=== PATIENT | male | born 1945 | race Caucasian/White ===

== ENCOUNTER → 2016-10-26 | Outpatient (CLI) | payer OTHER ==
[~2016-10-26] MED LIST: ACT35; GLUCAPHAGE; GLUCATROL; PROM25TA PO; ZOCOR
--- NOTE | 2016-10-27 05:48 | PAP/PSG TECHNICIAN REPORT ---
[facility] Trim Setter Helper Polysomnogram Report Study name: None Report date: 10/27/2016 Study date: 10/26/2016 Referring Physician: Ivon Church M.D. Name: YARELY PÉREZ Interpreting Physician: Giovana Church M.D. Date of : 1945 Trim Setter Helper: Zehra Saunders RPS. Sex: Male Age: 71 StudyType: PSG Weight: 200 lbs Height: 71 years, Height 5' 7.5" Neck Circum: 16 inches BMI: 30.86 Medications: Nuerontic 300 mg, Insulin, Lantus, Glucophage 1000 mg, Lipitor 40 mg, Prinivil 5 mg, Naproxen Sodium 550 mg, Flonase 50 MCG/ACT, Benefiber, Aspirin 71 mg, Vitamin D 400 units Patient History 71 yr. old male here for a possible split night sleep study in room #2. Patient complains of snoring, waking up with a dry mouth, and EDS. Patients [place] Sleepiness Scale Score is 10/24. Parameters Monitored NPSG: E1-M2, E2-M1, Fp1-M2, Fp2-M1, F3-M2, F4-M2, F4-M1, C3-M2, C4-M2, C4-M1, O1-M2, O2-M2, O2-M1, T3-M2, T4-M1, P3-M2, P4-M1, CHIN1, CHIN2, HR, EKG, Legs, PFLOW, SNOR, FLOW, CFLOW, Tidal Volume, THOR, ABDO, SpO2, PLTH, CPRESS, ETCO2 Wave, ETCO2, pH Sleep Architecture Sleep Stages Time at Lights Off 10:25:15 PM STAGES Time (min.) TST (%) Time at Lights On 5:30:15 AM Wake 65.0 -- Total Recording Time (TRT) 425.00 min. N1 33.0 9 Total Sleep Period (TSP) 403.0 min. N2 216.0 60 Total Sleep Time (TST) 360.0min. N3 39.0 11 Awake Time 65.0 min. REM 72.0 20 Wake after Sleep Onset 43.0 min. Sleep Efficiency (SE) 85 % Sleep Onset Latency (CLIFF) 22.0 min. Number of Stage 1 Shifts None Awakenings 17 Stage Changes 96 Number of REM periods 4 REM 72.0 20 REM Latency 54.5 min. NREM 288.0 80 Body Position Analysis Supine Right Left Side Prone Vertical Total Sleep Time (min.) 323.3 30.9 68.9 99.89 0.0 0.0 Total Sleep Time (%) 72% 9% 19% 28 0% N/A% Total Sleep Time REM (min.) 15.8 26.0 30.2 None 0.0 0.0 Total Sleep Time NREM (min.) 244.3 4.9 38.7 None 0.0 0.0 Intermittent Wake (min.) 63.2 1.3 0.5 None 0.0 0.0 Total Sleep Period (%) 75% None None None None None Arousals Myoclonus (PLM) * Events Count Index Events Count Index Spontaneous 13 2 Events Awake (PLMW) 21 19.4 Respiratory 21 3.5 Events Asleep w/ Arousal (PLMA) 45 7.5 PLM 44 8 Events Asleep w/o Arousal (PLMS) 126 21.0 Snoring 10 2 Total Asleep 171 28.5 Total 88 15 Total 192 27 Respiratory Analysis * CA OA MA CH H RERA Total Count 24 9 8 0 117 0 158 Index 4.0 1.5 1.3 0 19.5 0 26.3 Mean Duration 14.1 18.5 17.0 0.00 21.0 0.0 19.6 Longest Duration 20.8 24.2 20.5 0.00 20.5 0.0 55.0 Respiratory Event Summary Total Supine ~Supine Right Left Prone REM NREM Apneas Count 41 39 2 0 2 N/A 3 38 Index 6.8 9 1 0.0 1.7 N/A 3 8 Hypopneas (4% Desat) Count 117 90 27 17 10 N/A 36 81 Index 19.5 20.8 16 33.0 8.7 N/A 30.0 16.9 Apneas & All Hypopneas Count 158 129 29 17 12 N/A 39 119 Index 26.3 30 17 33 10 N/A 32.5 24.8 Respiratory Events (Ip Architect+All Hyp+RERA) Count 158 129 29 17 12 N/A 39 119 Index 26.3 30 17 33.0 10.4 N/A 32.5 24.8 Respiratory Related Arousal Count 21 129 0 0 0 N/A 1 20 Index 3.5 5 0 0 0 N/A 1 4 Snoring Analysis Supine Right Left Prone REM NREM Total Snore duration 3.6 min Snores count 105 27 16 N/A 41 107 148 Snore mean duration 1.5 Sec Snores index 24 52 14 N/A 34.2 22.3 24.7 TST with snoring (%) 1.0% Desaturation Event Summary: Minimum %SpO2 Event Count Mean/Min/Max Duration(sec.) Desaturation Index % Time In Bed > 90 145 21.5 / 7.5 / 56.8 91.3 22.7 86 - 90 97 23.0 / 4.3 / 58.5 18.7 74.0 81 - 85 1 23.3 / 23.3 / 23.3 4.8 3.0 76 - 80 0 N/A 0.0 0.3 71 - 75 0 N/A 0.0 0.0 66 - 70 0 N/A 0.0 0.0 61 - 65 0 N/A 0.0 0.0 56 - 60 0 N/A 0.0 0.0 51 - 55 0 N/A 0.0 0.0 < 50 0 N/A 0.0 0.0 Total REM NREM Awake <50% 0.0 min. 0.0 min. 0.0 min. 0.0 min. 51 - 60% 0.0 min. 0.0 min. 0.0 min. 0.0 min. 61 - 70% 0.0 min. 0.0 min. 0.0 min. 0.0 min. 71 - 80% 1.3 min. 1.0 min. 0.0 min. 0.3 min. 81 - 90% 323.7 min. 62.1 min. 232.4 min. 29.1 min. 91 - 100% 95.3 min. 8.9 min. 55.6 min. 30.9 min. Average 89 88 89 91 Minimum SpO2 76 76 82 78 Desaturation Event Index 24.1 28.3 25.6 13.8 # Desat. Events below 89% 143 32 100 11 Time(%) with Saturation below 89% 33.6 9.1 23.4 1.1 Time(min.) with Saturation below 89% 141.1 38.2 98.5 4.5 Time (mins) REM (mins) NREM (mins) % of TST SpO2 Below 90% 156 33 N123 64.8 SpO2 Below 88% 51 0 0 16 Heart Rate Analysis Min (bpm) Max (bpm) Average (bpm) Awake 52 81 61 NREM 51 73 59 REM 49 73 54 Overall 49 73 58 Supplemental O2 Values Minimum O2 level: None Value Start Time End Time Trim Setter Helper Comments Mr. Pérez slept in the right, left, and supine positions. No cardiac arrhythmia or PLMs noted. No bruxism noted. Snoring was noted and scored as a 3 on a scale of 0 through 5. (0=no snoring, 5=snoring loud enough to be heard through a closed door or down the [address] way) Mr. Pérez awoke to use the restroom once times during the night. Mr. Pérez stated, that was a good night. The final report will be interpreted and signed by a sleep physician. The completed physician report will then be placed in the patient medical record. Therapy (cm H2O) 0 TIB (min.) 425.0 TST (min.) 360.0 Sleep Onset (min.) 22.0 REM Onset From Sleep (min.) 54.5 Sleep Efficiency % 85 Wakefulness (%) 15 Wakefulness (min.) 65.0 NREM 1 (%) 9 NREM 1 (min.) 33.0 NREM 2 (%) 60 NREM 2 (min.) 216.0 NREM 3 (%) 11 NREM 3 (min.) 39.0 REM (%) 20 REM (min.) 72.0 # Arousals 88 Arousal Index 15 # Snore 148 Snore Index 24.7 AHI 26.3 AHI Supine 30 AHI Non-Supine 17 NREM AHI 24.8 REM AHI 32.5 RDI 26.3 # Obstructive Apnea 9 # Central Apnea 24 # Mixed Apnea 8 # Hypopneas 117 RERAs 0 Total Respiratory Events 163 Time Below SpO2 89% (min.) 136.7 Mean NREM SpO2 (%) 89 Mean REM SpO2 (%) 88 Mean Sleep SpO2 (%) 89 Min NREM SpO2 (%) 82 Min REM SpO2 (%) 76 Position Supine (min.) 323.3 Position Non-supine (min.) 99.9 LM Index Sleep 28.5 LM Index NREM 30.4 LM Index REM 20.8 Mean Heart Rate (bpm) 58 Min Heart Rate (bpm) 49
--- NOTE | 2016-11-11 15:05 | POLYSOMNOGRAPH REPORT ---
REFERRING PERSON: Dr. Colleen Church. EVENT SECURITY OFFICER: Zehra Saundesr. Mr. Burgess is a 71-year-old male sent for a possible split night sleep study. He complains of snoring, waking up with a dry mouth and excessive daytime sleepiness. His [place] sleepiness scale score on the evening of this study is 10. BMI is 30.86. Following the technical and digital specifications of the [place] [employer] (AASM) a standard diagnostic polysomnogram was performed monitoring EEG, EOG, EMG (chin and leg deviations), oxygen saturation, body position, digital video, respiratory effort and airflow. The sleep Stage and event scoring was based on the AASM Manual for the Scoring of Sleep and Associated Events 2007 edition. Apneas are defined as a drop in the peak thermal sensor excursion by >90% of baseline for at least 10 seconds. Hypopneas were scored using the 4% oxygen desaturation rule (4A-[employer]ic[employer]) and a decrease in the nasal pressure excursions by >30% of baseline for at least 10 seconds. Respiratory effort-related arousal (RERA's) is defined as a sequence of breaths lasting at least 10 seconds characterized by increasing respiratory effort or flattening of the nasal pressure waveform leading to an arousal from sleep when the sequence of breaths does not meet criteria for an apnea or hypopnea. Apnea Hypopnea index (AHI) is defined as the number of apneas and hypopneas occurring in an hour of sleep. Respiratory disturbance index (RDI) is defined as the number of apneas, hypopneas, and RERA's occurring in an hour of sleep. Mr. Resendez total sleep period time was 403 minutes. Total sleep time was 360 minutes. Sleep efficiency was 85%. Latency to sleep onset was 22 minutes with wake after sleep onset of 43 minutes. Total non-REM sleep time was 288 minutes. He spent 9% of that time in N1 sleep, 60% in N2 sleep and 11% in N3 sleep. REM latency was 54.5 minutes. Total REM sleep time was 72 minutes or 20% of total sleep time. There were 88 cortical arousals from sleep. 44 of these arousals were due to periodic limb movements, 21 were due to respiratory events, and 13 were spontaneous. There were 171 periodic limb movements noted on this test. Limb movement index was 28.5. Limb movement with arousal index was 7.5. There were 24 central apneas, 9 obstructive apneas and 8 mixed apneas on this test. Additionally, there were 117 hypopneas, which were predominantly obstructive in nature. Apnea-hypopnea index was 26.3 consistent with moderately severe sleep apnea. Supine AHI was 30 and REM AHI was 32.5. There were 148 snoring events recorded. Total sleep time with snoring was 1%. Mean saturation during sleep was low at 89% with desaturations to 76% with a respiratory event. Saturations were less than 89% for 141.1 minutes of recorded time. There was no cardiac ectopy noted on this study. Mr. Burgess' heart rate ranged from a low of 49 beats per minute to a high of 73 beats per minute during sleep. IMPRESSION AND PLAN: Mr. Burgess is a 71-year-old male with moderately severe sleep apnea and significant nocturnal hypoxemia on this sleep study. 1. This patient would likely benefit from positive airway pressure therapy. He should return to the sleep lab for a full night titration and then based on these results, be started on equipment at home. A download from his machine should be reviewed in 1 month both to check compliance as well as AHI and further pressure adjustments can occur at that time. 2. Should this patient be unwilling or unable to tolerate CPAP therapy, he should be started on nocturnal oxygen and referred to ear, nose and throat or oral surgery/dental medicine (if appropriate) to discuss alternative treatments for sleep disordered breathing.
== END | disposition home or self-care (01) ==
LOC: C.NEUR 20:00
PROVIDERS: ATTEND Family Medicine
DX: G47.33 Obstructive sleep apnea (adult) (pediatric) (principal); G47.14 Hypersomnia due to medical condition; R09.02 Hypoxemia

== ENCOUNTER → 2016-12-20 | Outpatient (CLI) | payer OTHER ==
--- NOTE | 2016-12-21 06:42 | PAP/PSG TECHNICIAN REPORT ---
[facility] Mechanical Maintenance Supervisor Polysomnogram Report Study name: None Report date: 12/21/2016 Study date: 12/20/2016 Referring Physician: Ivon Church M.D. Name: YARELY PÉREZ Interpreting Physician: Moe Balderas M.D. Date of : 1945 Mechanical Maintenance Supervisor: Zehra Saunders RPS. Sex: Male Age: 71 Study Type: PSG Weight: 200 lbs 16 in Height: 71 years, Height 5' 7.5" Neck Circum: BMI: 30.86 Medications: Nuerontic 300 mg, Insulin, Lantus, Glucophage 1000 mg, Lipitor 40 mg, Prinivil 5 mg, Naproxen Sodium 550 mg, Flonase 50 MCG/ACT, Benefiber, Aspirin 71 mg, Vitamin D 400 units Patient History 71 yr. old male here for a titration sleep study. Patients PSG was done on 10/26/16 and had an AHI of 26.3. Patient has been on Auto CPAP and he states he is doing well with it. ESS was 12/20. Parameters Monitored NPSG: E1-M2, E2-M1, Fp1-M2, Fp2-M1, F3-M2, F4-M2, F4-M1, C3-M2, C4-M2, C4-M1, O1-M2, O2-M2, O2-M1, T3-M2, T4-M1, P3-M2, P4-M1, CHIN1, CHIN2, HR, EKG, Legs, PFLOW, SNOR, FLOW, CFLOW, Tidal Volume, THOR, ABDO, SpO2, PLTH, CPRESS, ETCO2 Wave, ETCO2, pH Sleep Architecture Sleep Stages Time at Lights Off 10:38:34 PM STAGES Time (min.) TST (%) Time at Lights On 6:37:04 AM Wake 252.0 -- Total Recording Time (TRT) 476.50 min. N1 26.0 12 Total Sleep Period (TSP) 461.0 min. N2 91.5 41 Total Sleep Time (TST) 224.5min. N3 37.5 17 Awake Time 252.0 min. REM 69.5 31 Wake after Sleep Onset 238.5 min. Sleep Efficiency (SE) 47 % Sleep Onset Latency (CLIFF) 15.5 min. Number of Stage 1 Shifts None Awakenings 10 Stage Changes 59 Number of REM periods 5 REM 69.5 31 REM Latency 72.5 min. NREM 155.0 69 Body Position Analysis Supine Right Left Side Prone Vertical Total Sleep Time (min.) 345.0 0.5 0.0 0.50 0.0 0.0 Total Sleep Time (%) 100% 0% 0% 0 0% N/A% Total Sleep Time REM (min.) 69.5 0.0 0.0 None 0.0 0.0 Total Sleep Time NREM (min.) 154.5 0.5 0.0 None 0.0 0.0 Intermittent Wake (min.) 121.0 131.0 0.0 None 0.0 0.0 Total Sleep Period (%) 71% None None None None None Arousals Myoclonus (PLM) * Events Count Index Events Count Index Spontaneous 8 2 Events Awake (PLMW) 45 10.7 Respiratory 5 1.6 Events Asleep w/ Arousal (PLMA) 15 4.0 PLM 15 4 Events Asleep w/o Arousal (PLMS) 26 6.9 Snoring 3 1 Total Asleep 41 11.0 Total 31 8 Total 86 11 Respiratory Analysis * CA OA MA CH H RERA Total Count 48 7 0 0 92 1 147 Index 12.8 1.9 0.0 0 24.6 0 39.6 Mean Duration 14.2 13.6 0.0 0.00 26.5 26.7 21.9 Longest Duration 20.2 17.4 0.0 0.00 0.0 26.7 60.1 Respiratory Event Summary Total Supine ~Supine Right Left Prone REM NREM Apneas Count 55 55 0 0 N/A N/A 4 51 Index 14.7 15 0 0.0 N/A N/A 3 20 Hypopneas (4% Desat) Count 92 92 0 0 N/A N/A 41 51 Index 24.6 24.6 0 0.0 N/A N/A 35.4 19.7 Apneas & All Hypopneas Count 147 147 0 0 N/A N/A 45 102 Index 39.3 39 0 0 N/A N/A 38.8 39.5 Respiratory Events (Administration Dean+All Hyp+RERA) Count 147 148 0 0 N/A N/A 45 102 Index 39.6 40 0 0.0 N/A N/A 38.8 39.9 Respiratory Related Arousal Count 5 148 0 0 N/A N/A 0 6 Index 1.6 2 0 0 N/A N/A 0 2 Snoring Analysis Supine Right Left Prone REM NREM Total Snore duration 1.3 min Snores count 44 0 N/A N/A 0 44 44 Snore mean duration 1.8 Sec Snores index 12 0 N/A N/A 0.0 17.0 11.8 TST with snoring (%) 0.6% Desaturation Event Summary: Minimum %SpO2 Event Count Mean/Min/Max Duration(sec.) Desaturation Index % Time In Bed > 90 162 23.5 / 8.0 / 54.8 25.9 79.5 86 - 90 20 20.2 / 11.0 / 32.5 12.5 20.3 81 - 85 0 N/A 0.0 0.3 76 - 80 0 N/A 0.0 0.0 71 - 75 0 N/A 0.0 0.0 66 - 70 0 N/A 0.0 0.0 61 - 65 0 N/A 0.0 0.0 56 - 60 0 N/A 0.0 0.0 51 - 55 0 N/A 0.0 0.0 < 50 0 N/A 0.0 0.0 Total REM NREM Awake <50% 0.0 min. 0.0 min. 0.0 min. 0.0 min. 51 - 60% 0.0 min. 0.0 min. 0.0 min. 0.0 min. 61 - 70% 0.0 min. 0.0 min. 0.0 min. 0.0 min. 71 - 80% 0.0 min. 0.0 min. 0.0 min. 0.0 min. 81 - 90% 97.0 min. 32.4 min. 58.8 min. 5.8 min. 91 - 100% 375.8 min. 37.1 min. 96.2 min. 242.5 min. Average 93 91 91 94 Minimum SpO2 81 84 85 81 Desaturation Event Index 20.7 34.5 38.3 6.7 # Desat. Events below 89% 69 31 33 5 Time(%) with Saturation below 89% 3.4 1.7 1.4 0.3 Time(min.) with Saturation below 89% 15.9 8.1 6.4 1.3 Time (mins) REM (mins) NREM (mins) % of TST SpO2 Below 90% 129 39 N90 18.0 SpO2 Below 88% 26 0 0 2 Heart Rate Analysis Min (bpm) Max (bpm) Average (bpm) Awake 49 105 55 NREM 47 69 55 REM 46 57 51 Overall 46 69 53 Supplemental O2 Values Minimum O2 level: None Value Start Time End Time Mechanical Maintenance Supervisor Comments Mr. Pérez slept in the right and positions. No cardiac arrhythmia. PLMs noted. No bruxism noted. CPAP was initiated at +4 CMH2O room air and up-titrated to level of +8 CMH2O Cflex 2. Patient was about to be switched to Bi-Pap for central apneas but awoke to use the restroom at 1:05am and did not return to sleep until after 5:05. At this time, centrals returned and he was switched late to Bi-PAP. PAP initiated at an IPAP of +8 CMH2O and an EPAP of +4 CMH2O up-titrated to level of: IPAP +15 CMH2O, EPAP + 7 CMH20 Rate of 12 BPM. Patient was still having hypopneas at this pressure. Patient used his Respironics Dream Wear nasal cushions during titration. Mr. Pérez awoke to use the restroom once during the night The final report will be interpreted and signed by a sleep physician. The completed physician report will then be placed in the patient medical record. Therapy Event: Therapy (cm H20) 4 5 6 7 8 8/4 Total Time at Pressure (min.) 82.4 12.1 15.1 18.7 256.1 8.8 TST at Pressure (min.) 65.4 12.1 15.1 18.2 22.6 8.8 # Periods 1 1 1 1 1 1 Sleep Onset (min.) 15.5 0.0 0.0 0.0 0.0 0.0 REM Onset (min.) N/A 5.6 0.0 0.0 N/A N/A Sleep Efficiency % 79 100 100 97 8 100 Wakefulness (%) 20.6 0.0 0.0 2.7 91.2 0.0 Wakefulness (min.) 17.0 0.0 0.0 0.5 233.5 0.0 NREM 1 (%) 8.4 8.8 3.3 2.7 3.7 11.4 NREM 1 (min.) 6.9 1.1 0.5 0.5 9.5 1.0 NREM 2 (%) 37.6 37.1 6.6 57.9 5.1 88.6 NREM 2 (min.) 31.0 4.5 1.0 10.8 13.1 7.8 NREM 3 (%) 33.4 0.0 0.0 0.0 0.0 0.0 NREM 3 (min.) 27.5 0.0 0.0 0.0 0.0 0.0 REM (%) 0.0 54.1 90.1 36.7 0.0 0.0 REM (min.) 0.0 6.5 13.6 6.9 0.0 0.0 # Arousals 6 0 2 4 12 1 Arousal Index 5.5 0.0 8.0 13.2 31.9 6.8 # Snore 2 0 0 0 4 27 Snore Index 1.8 0.0 0.0 0.0 10.6 184.5 AHI 2.8 24.8 35.8 59.4 82.4 61.5 AHI Supine 2.8 24.8 35.8 59.4 84.3 61.5 AHI Non-Supine N/A N/A N/A N/A 0.0 N/A NREM AHI 2.8 10.8 0.0 95.5 82.4 61.5 REM AHI N/A 36.6 39.7 0.0 N/A N/A RDI 2.8 24.8 35.8 59.4 82.4 61.5 # Obstructive 0 0 0 0 0 2 # Central Ap 0 0 1 16 23 1 # Mixed 0 0 0 0 0 0 # Hypopneas 3 5 8 2 8 6 RERAS 0 0 0 0 0 0 Total Respiratory Events 3 5 9 18 31 9 Time Below SpO2 89.00% (min.) 1.2 2.5 0.9 0.3 0.0 0.2 Mean NREM SpO2 (%) 91 90 91 91 93 92 Mean REM SpO2 (%) N/A 90 91 91 N/A N/A Mean Sleep SpO2 (%) 91 90 91 91 93 92 Min NREM SpO2 (%) 85 86 90 87 89 87 Min REM SpO2 (%) N/A 85 84 90 N/A N/A Position Supine (min.) 65.4 12.1 15.1 18.2 22.1 8.8 Position Non-supine (min.) 0.0 0.0 0.0 0.0 0.5 0.0 LM Index Sleep 3.7 0.0 0.0 29.7 53.2 20.5 LM Index NREM 3.7 0.0 0.0 47.7 53.2 20.5 LM Index REM N/A 0.0 0.0 0.0 N/A N/A Mean Heart Rate (bpm) 57 54 53 53 53 53 Min Heart Rate (bpm) 54 50 50 51 51 51 Therapy (cm H20) 11/016 6 146 15/7 Total Time at Pressure (min.) 14.1 8.4 7.7 33.4 11.6 8.1 TST at Pressure (min.) 13.6 8.4 7.7 32.9 11.6 8.1 # Periods 1 1 1 1 1 1 Sleep Onset (min.) 0.0 0.0 0.0 0.0 0.0 0.0 REM Onset (min.) N/A N/A 7.3 0.0 0.0 0.0 Sleep Efficiency % 96 100 100 98 100 100 Wakefulness (%) 3.5 0.0 0.0 1.5 0.0 0.0 Wakefulness (min.) 0.5 0.0 0.0 0.5 0.0 0.0 NREM 1 (%) 14.2 0.0 0.0 10.5 8.6 0.0 NREM 1 (min.) 2.0 0.0 0.0 3.5 1.0 0.0 NREM 2 (%) 82.3 62.3 6.5 17.9 0.0 0.0 NREM 2 (min.) 11.6 5.2 0.5 6.0 0.0 0.0 NREM 3 (%) 0.0 37.7 89.0 0.0 0.0 0.0 NREM 3 (min.) 0.0 3.2 6.8 0.0 0.0 0.0 REM (%) 0.0 0.0 4.5 70.1 91.4 100.0 REM (min.) 0.0 0.0 0.3 23.4 10.6 8.1 # Arousals 4 0 0 1 1 0 Arousal Index 17.7 0.0 0.0 1.8 5.2 0.0 # Snore 7 0 0 3 1 0 Snore Index 30.9 0.0 0.0 5.5 5.2 0.0 AHI 30.9 78.4 86.1 51.0 25.9 73.8 AHI Supine 30.9 78.4 86.1 51.0 25.9 73.8 AHI Non-Supine N/A N/A N/A N/A N/A N/A NREM AHI 30.9 78.4 81.9 69.5 60.0 N/A REM AHI N/A N/A 174.8 43.5 22.7 73.8 RDI 30.9 78.4 86.1 52.8 25.9 73.8 # Obstructive 3 0 0 2 0 0 # Central Ap 1 0 0 6 0 0 # Mixed 0 0 0 0 0 0 # Hypopneas 3 11 11 20 5 10 RERAS 0 0 0 1 0 0 Total Respiratory Events 7 11 11 29 5 10 Time Below SpO2 89.00% (min.) 0.6 1.3 1.0 5.3 0.7 0.6 Mean NREM SpO2 (%) 91 91 91 92 91 N/A Mean REM SpO2 (%) N/A N/A 90 91 90 91 Mean Sleep SpO2 (%) 91 91 91 91 90 91 Min NREM SpO2 (%) 86 87 87 85 89 N/A Min REM SpO2 (%) N/A N/A 89 84 87 87 Position Supine (min.) 13.6 8.4 7.7 32.9 11.6 8.1 Position Non-supine (min.) 0.0 0.0 0.0 0.0 0.0 0.0 LM Index Sleep 13.2 0.0 0.0 3.6 0.0 0.0 LM Index NREM 13.2 0.0 0.0 6.3 0.0 N/A LM Index REM N/A N/A 0.0 2.6 0.0 0.0 Mean Heart Rate (bpm) 53 53 51 50 48 49 Min Heart Rate (bpm) 50 52 49 47 46 47
--- NOTE | 2016-12-22 07:47 | POLYSOMNOGRAPH REPORT ---
CLINICAL DATA: A 71-year-old male with BMI of 30.9, referred by Dr. Giovana Church for a CPAP titration study. He had a sleep study done on 10/26/2016 which showed moderate sleep apnea with an AHI of 26.3 and has been on auto CPAP. His [place] Sleepiness score is 10/24. SLEEP ARCHITECTURE: Total sleep period was 461 minutes. Total sleep time was 224.5 minutes divided between 155 minutes of non-REM sleep and 69.5 minutes of REM sleep. Sleep onset latency was 15.5 minutes. REM latency was 72.5 minutes. Sleep efficiency was reduced at 47%. Wake after sleep onset was markedly elevated at 238.5 minutes. Sleep consisted of stage N1 12%, stage N2 41%, stage N3 17% and REM 31%. AROUSAL DATA: 31 arousals recorded for an index of 8 per hour. PLM DATA: 41 limb movements during sleep were noted for an index of 11 per hour with arousal index of 4 per hour. RESPIRATORY DATA: AHI was 39.3. There were 48 central and 7 obstructive apneic episodes. The longest duration of apnea was 20.2 seconds. There were 92 hypopneic episodes with a mean duration of 26.5 seconds. OXIMETRY DATA: Nocturnal hypoxemia seen. Oxygen luisana was 84% during REM. Mean saturation was 93%. Time below 88% was 26 minutes. EKG: Heart rates ranged from 47-69 beats per minute. No arrhythmias were noted. [employer] ADMINISTRATOR'S COMMENTS AND TREATMENT SUMMARY: The patient slept in the right and supine positions. CPAP was started at 4 cm of water pressure and was titrated to 8 cm of water pressure, C-Flex 2. However, he developed significant treatment onset central apneic episodes which required a switch to BiPAP starting at 8/4. He was eventually titrated up to BiPAP 15/7 with a backup rate of 12 breaths per minute. No optimal pressure setting could be obtained. His AHI continued to run in the range of 30 or above during the entire titration study. IMPRESSION: Moderate sleep apnea with treatment onset central apneic episodes, requiring an attempt at BiPAP with a backup rate. The patient continued to have central apneic episodes unresponsive to BiPAP. RECOMMENDATIONS: If the patient is continuing to have issues, a titration study with ASV is needed. If he is doing well on auto CPAP with acceptable numbers from an AHI standpoint, then auto CPAP could be used. Clinical correlation is needed. MTDD
== END | disposition home or self-care (01) ==
LOC: C.NEUR 20:00
PROVIDERS: ATTEND Nurse Practitioner Family
DX: G47.31 Primary central sleep apnea (principal)

== ENCOUNTER → 2017-02-01 | Outpatient (CLI) | payer OTHER ==
--- NOTE | 2017-02-02 06:30 | PAP/PSG TECHNICIAN REPORT ---
[facility] Inspector And Sorter Polysomnogram Report Study name: None Report date: 02/02/2017 Study date: 02/01/2017 Referring Physician: Ivon Church M.D. Name: ELISA YARELY Interpreting Physician: Moe Balderas M.D. Date of : 1945 Inspector And Sorter: Mala Galan [facility]. Sex: Male Age: 71 Study Type: PSG PAP Weight: 200 lbs 16 in Height: 71 years, Height 5' 7.5" Neck Circum: BMI: 30.86 Medications: Nuerontic 300 mg, Insulin, Lantus, Glucophage 1000 mg, Lipitor 40 mg, Prinivil 5 mg, Naproxen Sodium 550 mg, Flonase 50 MCG/ACT, Benefiber, Aspirin 71 mg, Vitamin D 400 units Patient History 71 yr-old male here for a BiPAP update study. His last titration study was on 12/20/16 and ended with a high AHI. He is back to assess his pressure settings. The test was started on room air and 12/7 CMH2O with a rate of 12 BPM (per the doctor's order). ETCO2 testing was not utilized during this study. Room 1 Parameters Monitored NPSG: E1-M2, E2-M1, Fp1-M2, Fp2-M1, F3-M2, F4-M2, F4-M1, C3-M2, C4-M2, C4-M1, O1-M2, O2-M2, O2-M1, T3-M2, T4-M1, P3-M2, P4-M1, CHIN1, CHIN2, HR, EKG, Legs, PFLOW, SNOR, FLOW, CFLOW, Tidal Volume, THOR, ABDO, SpO2, PLTH, CPRESS, ETCO2 Wave, ETCO2, pH Sleep Architecture Sleep Stages Time at Lights Off 10:23:40 PM STAGES Time (min.) TST (%) Time at Lights On 5:45:40 AM Wake 9.0 -- Total Recording Time (TRT) 442.00 min. N1 30.0 7 Total Sleep Period (TSP) 441.0 min. N2 258.0 60 Total Sleep Time (TST) 433.0min. N3 38.0 9 Awake Time 9.0 min. REM 107.0 25 Wake after Sleep Onset 8.0 min. Sleep Efficiency (SE) 98 % Sleep Onset Latency (CLIFF) 1.0 min. Number of Stage 1 Shifts None Awakenings 5 Stage Changes 61 Number of REM periods 7 REM 107.0 25 REM Latency 62.0 min. NREM 326.0 75 Body Position Analysis Supine Right Left Side Prone Vertical Total Sleep Time (min.) 442.0 0.0 0.0 0.00 0.0 0.0 Total Sleep Time (%) 100% 0% 0% 0 0% N/A% Total Sleep Time REM (min.) 107.0 0.0 0.0 None 0.0 0.0 Total Sleep Time NREM (min.) 326.0 0.0 0.0 None 0.0 0.0 Intermittent Wake (min.) 9.0 0.0 0.0 None 0.0 0.0 Total Sleep Period (%) 100% None None None None None Arousals Myoclonus (PLM) * Events Count Index Events Count Index Spontaneous 21 3 Events Awake (PLMW) 1 6.7 Respiratory 6 0.8 Events Asleep w/ Arousal (PLMA) 29 4.0 PLM 29 4 Events Asleep w/o Arousal (PLMS) 201 27.9 Snoring 1 0 Total Asleep 230 31.9 Total 57 8 Total 231 31 Respiratory Analysis * CA OA MA CH H RERA Total Count 8 0 0 0 8 0 16 Index 1.1 0.0 0.0 0 1.1 0 2.2 Mean Duration 16.2 0.0 0.0 0.00 17.0 0.0 16.6 Longest Duration 18.6 0.0 0.0 0.00 0.0 0.0 20.1 Respiratory Event Summary Total Supine ~Supine Right Left Prone REM NREM Apneas Count 8 8 N/A N/A N/A N/A 0 8 Index 1.1 1 N/A N/A N/A N/A 0 1 Hypopneas (4% Desat) Count 8 8 N/A N/A N/A N/A 1 7 Index 1.1 1.1 N/A N/A N/A N/A 0.6 1.3 Apneas & All Hypopneas Count 16 16 N/A N/A N/A N/A 1 15 Index 2.2 2 N/A N/A N/A N/A 0.6 2.8 Respiratory Events (Bioinformatics Analyst+All Hyp+RERA) Count 16 16 N/A N/A N/A N/A 1 15 Index 2.2 2 N/A N/A N/A N/A 0.6 2.8 Respiratory Related Arousal Count 6 16 N/A N/A N/A N/A 0 6 Index 0.8 1 N/A N/A N/A N/A 0 1 Snoring Analysis Supine Right Left Prone REM NREM Total Snore duration 0.6 min Snores count 18 N/A N/A N/A 4 14 18 Snore mean duration 2.0 Sec Snores index 2 N/A N/A N/A 2.2 2.6 2.5 TST with snoring (%) 0.1% Desaturation Event Summary: Minimum %SpO2 Event Count Mean/Min/Max Duration(sec.) Desaturation Index % Time In Bed > 90 26 26.3 / 12.0 / 51.3 5.3 67.0 86 - 90 5 30.9 / 10.8 / 51.3 2.1 33.0 81 - 85 0 N/A 0.0 0.1 76 - 80 0 N/A 0.0 0.0 71 - 75 0 N/A 0.0 0.0 66 - 70 0 N/A 0.0 0.0 61 - 65 0 N/A 0.0 0.0 56 - 60 0 N/A 0.0 0.0 51 - 55 0 N/A 0.0 0.0 < 50 0 N/A 0.0 0.0 Total REM NREM Awake <50% 0.0 min. 0.0 min. 0.0 min. 0.0 min. 51 - 60% 0.0 min. 0.0 min. 0.0 min. 0.0 min. 61 - 70% 0.0 min. 0.0 min. 0.0 min. 0.0 min. 71 - 80% 0.0 min. 0.0 min. 0.0 min. 0.0 min. 81 - 90% 145.9 min. 39.0 min. 106.8 min. 0.1 min. 91 - 100% 296.1 min. 68.0 min. 219.2 min. 8.9 min. Average 92 91 92 95 Minimum SpO2 84 86 84 90 Desaturation Event Index 3.7 2.8 3.9 6.7 # Desat. Events below 89% 14 3 11 N/A Time(%) with Saturation below 89% 2.8 0.8 2.1 0.0 Time(min.) with Saturation below 89% 12.6 3.5 9.1 0.0 Time (mins) REM (mins) NREM (mins) % of TST SpO2 Below 90% 19 5 N14 14.7 SpO2 Below 88% 6 0 0 0 Heart Rate Analysis Min (bpm) Max (bpm) Average (bpm) Awake 53 71 58 NREM 50 69 57 REM 49 70 53 Overall 49 70 56 Supplemental O2 Values Minimum O2 level: None Value Start Time End Time Inspector And Sorter Comments Mr. Burgess slept only in the supine position. No cardiac arrhythmias were noted. PLMs and arousals from leg movements were noted. No bruxism noted. PAP initiated at an IPAP of +12 CMH2O and an EPAP of +7 CMH2O with a rate of 12 BPM (per the doctor's order), and up-titrated to a level of: IPAP +13 CMH2O, EPAP +7 CMH20, BiFlex 3 with a rate of 12 BPM, which nearly eliminated all respiratory events and snoring. After he had been on a pressure of 13/6 CMH2O for over two hours, his O2 saturation had been under 89% for 10.1 minutes. He was then started on 1 LPM of O2. He used his own Dreamwear nasal pillows mask size small from [employer] during the titration. He did not wake up to use the restroom during the night. Mr. Burgess stated that he slept about the same as usual. The final report will be interpreted and signed by a sleep physician. The completed physician report will then be placed in the patient medical record. CPAP REPORT Therapy Detail Time / Page # Comment BiLevel 12/7 cm H2O, Rate 12 bpm Nasal Pillow Mask Flex Pressure Relief Humidifier on 10:20:55 PM / pg. 73 STARTING AT BIPAP 12/7 WITH RATE OF 12 PER THE DOCTOR'S ORDER BiLevel 13/7 cm H2O, Rate 12 bpm Nasal Pillow Mask Flex Pressure Relief Humidifier on 10:41:35 PM / pg. 114 INCREASED IPAP FOR HYPOPNEAS BiLevel 13/7 cm H2O, Rate 12 bpm Nasal Pillow Mask Flex Pressure Relief Humidifier on Oxygen 1.0 lpm 1:10:34 AM / pg. 412 HE HAS BEEN ON A PRESSURE OF 13/7 CMH2O FOR OVER 2 HOURS, HIS AHI IS BELOW 10 AND HIS O2 HAS BEEN UNDER 89% FOR 10.3 MINUTES. STARTING HIM ON 1 LPM O2 Therapy Event: Therapy (cm H20) 02/02 08/09 Total Time at Pressure (min.) 17.9 424.1 TST at Pressure (min.) 16.9 416.1 # Periods 1 1 Sleep Onset (min.) 1.0 0.0 REM Onset (min.) N/A 45.1 Sleep Efficiency % 94 98 Wakefulness (%) 5.6 1.9 Wakefulness (min.) 1.0 8.0 NREM 1 (%) 22.3 6.1 NREM 1 (min.) 4.0 26.0 NREM 2 (%) 72.1 57.8 NREM 2 (min.) 12.9 245.1 NREM 3 (%) 0.0 9.0 NREM 3 (min.) 0.0 38.0 REM (%) 0.0 25.2 REM (min.) 0.0 107.0 # Arousals 11 46 Arousal Index 39.0 6.6 # Snore 0 18 Snore Index 0.0 2.6 AHI 28.4 1.2 AHI Supine 28.4 1.2 AHI Non-Supine N/A N/A NREM AHI 28.4 1.4 REM AHI N/A 0.6 RDI 28.4 1.2 # Obstructive 0 0 # Central Ap 2 6 # Mixed 0 0 # Hypopneas 6 2 RERAS 0 0 Total Respiratory Events 8 8 Time Below SpO2 89.00% (min.) 1.9 10.7 Mean NREM SpO2 (%) 91 92 Mean REM SpO2 (%) N/A 91 Mean Sleep SpO2 (%) 91 92 Min NREM SpO2 (%) 84 88 Min REM SpO2 (%) N/A 86 Position Supine (min.) 16.9 416.1 Position Non-supine (min.) 0.0 0.0 LM Index Sleep 60.3 30.7 LM Index NREM 60.3 37.7 LM Index REM N/A 10.7 Mean Heart Rate (bpm) 60 56 Min Heart Rate (bpm) 57 49
--- NOTE | 2017-02-06 07:57 | POLYSOMNOGRAPH REPORT ---
CLINICAL DATA: A 71-year-old male with BMI of 30.9, referred by Dr. Giovana Church for BiPAP study. His last titration study on 12/20/2016 ended with a high AHI. This study was started with BiPAP 12/7 with a backup rate of 12 breaths per minute. SLEEP ARCHITECTURE: Total sleep period was 441 minutes. Total sleep time was 433 minutes divided between 326 minutes of non-REM sleep and 107 minutes of REM sleep. Sleep onset latency was 1 minute. REM latency was 62 minutes. Sleep efficiency was 98%. Wake after sleep onset was 8 minutes. Sleep consisted of stage N1 7%, stage N2 60%, stage N3 9% and REM 25%. AROUSAL DATA: 57 arousals were recorded for an index of 8 per hour. 29 were due to PLM events. PLM DATA: Moderate limb movements during sleep were noted. There were 230 limb movements during sleep noted for an index of 32 per hour with arousal index of 4 per hour. RESPIRATORY DATA: AHI was 2.2. There were 8 central apneic episodes. The longest apneic episode was 18.6 seconds. There were 8 hypopneic episodes with a mean duration of 17 seconds. OXIMETRY DATA: Nocturnal hypoxemia was seen. Oxygen luisana was 84% during non-REM sleep. Mean saturation was 93%. Time below 88% was 6 minutes. EKG: Heart rates ranged from 50-70 beats per minute. No arrhythmias were noted. [employer] COMMENTS AND TREATMENT SUMMARY: The patient uses DreamWear nasal pillow mask size small from [employer]. He was started on BiPAP 12/7 and was titrated up to BiPAP 13/7 with a backup rate of 12 breaths per minute. He also had a Bi-Flex setting of 3. At his final pressure setting, he slept for 416 minutes with an AHI of 1.2. He continued to have nocturnal hypoxemia and was started on 1 liter per minute oxygen as well. IMPRESSION: Obstructive sleep apnea corrected with BiPAP 13/7, Bi-Flex 3, backup rate of 12 breaths per minute, oxygen 1 liter per minute. RECOMMENDATIONS: The patient should be started on the above-noted treatment regimen and seen back in followup within 90 days to document efficacy and compliance. [facility]
== END | disposition home or self-care (01) ==
LOC: C.NEUR 21:00
PROVIDERS: ATTEND Nurse Practitioner Family
DX: G47.33 Obstructive sleep apnea (adult) (pediatric) (principal)